=== PATIENT | female | born 1985 | race Two or more races ===

== ENCOUNTER 2017-02-08 13:03 | Emergency (ER) | payer SELFPAY ==
[2017-02-08 13:08] VITALS: TEMP 98; BMI 29.2
--- NOTE | 2017-02-08 13:30 | PDOC ---
History of Present Illness <Virgil Esposito - Last Filed: 02/08/17 17:20> - General History Source: Spouse Exam Limitations: Language Barrier - History of Present Illness Initial Comments: 02/08/17 14:40 The patent is a 29 yo @ 27 wks gestation and no PMH comes into the ED c/o Nasal congestion, Headache, Back pain and productive cough for the past 6 days. Patient is Hebrew speaking and the history was collected by family at bedside. Patient states that she was in her usual state of health until 6 days ago when she began to feel congestion in her nose and sinuses. This congestion is associated with a headache which begins paranasally then radiates along both sides of the head and around to the back of the neck. The headache is worse upon leaning forward. The patient also complains of a cough productive of green sputum which began at the same time as her other symptoms. When she coughs, the patient states that she experiences shortness of breath and chest tightness, but not when she is at rest. Patient denies fevers, chills, sweats, diarrhea, chest pain. Patient recently travelled to the from [facility] 3 weeks ago after a 3 month stay. 02/08/17 14:50 <Franklyn Mahmood - Last Filed: 02/08/17 17:41> - General Chief Complaint: Shortness of Breath Stated Complaint: WEAKNESS (27 WKS )SOB, SINUS PAIN Time Seen by Provider: 02/08/17 13:21 Past History <Virgil Esposito - Last Filed: 02/08/17 17:20> - Travel Traveled outside of the country in the last 30 days: Yes If so, where?: [facility] - Past Medical History Other medical history: denies - Surgical History Appendectomy: Yes Cholecystectomy: Yes - Family Disease History Family Disease History: Diabetes: Grandparents Comment:: 02/08/17 14:58 Breast cancer in aunt - Reproductive History Is Patient Now?: Yes (#): 3 Para: 2 - Suicide/Smoking/Psychosocial Hx Smoking History: Never smoked Information on smoking cessation initiated: No Hx Alcohol Use: No Drug/Substance Use Hx: No Substance Use Type: None <Franklyn Mahmood - Last Filed: 02/08/17 17:41> - Past Medical History Allergies/Adverse Reactions: Allergies Allergy/AdvReac Type Severity Reaction Status Date / Time No Known Allergies Allergy Verified 02/08/17 13:08 Home Medications: Ambulatory Orders Vit/Iron Fumarate/FA [ Tablet] 1 each PO DAILY 02/08/17 Review of Systems - Review of Systems Constitutional: Yes: Malaise, Weakness. No: Chills, Diaphoresis, Fever, Night Sweats HEENTM: Yes: Nose Congestion. No: Ear Pain, Ear Discharge, Nose Bleeding, Throat Pain, Throat Swelling Respiratory: Yes: Cough, Shortness of Breath, Productive cough. No: SOB with Exertion, SOB at Rest, Wheezing, Hemoptysis Cardiac (ROS): Yes: Lightheadedness, Chest Tightness. No: Chest Pain, Edema, Palpitations, Syncope ABD/GI: No: Constipated, Diarrhea : Yes: Frequency. No: Burning, Dysuria, Hematuria Musculoskeletal: Yes: Back Pain, Joint Pain Neurological: Yes: Headache. No: Numbness <Franklyn Mahmood - Last Filed: 02/08/17 17:41> *Physical Exam - Vital Signs Last Vital Signs Temp Pulse Resp BP Pulse Ox 98 F 89 18 114/58 99 02/08/17 13:06 02/08/17 13:06 02/08/17 13:06 02/08/17 13:06 02/08/17 13:06 <Virgil Esposito - Last Filed: 02/08/17 17:20> - Vital Signs Last Vital Signs Temp Pulse Resp BP Pulse Ox 98 F 89 18 114/58 99 02/08/17 13:06 02/08/17 13:06 02/08/17 13:06 02/08/17 13:06 02/08/17 13:06 - Physical Exam General Appearance: Yes: Appropriately Dressed. No: Apparent Distress HEENT: positive: EDITA, Pharynx Normal, Other (mild erythema and cobblestoneing in the posterior pharynx. ). negative: Photophobia, Pharyngeal Erythema, Tonsillar Exudate Neck: positive: Trachea midline, Supple. negative: Rigidity Respiratory/Chest: positive: Lungs Clear, Normal Breath Sounds. negative: Accessory Muscle Use Cardiovascular: positive: Regular Rhythm, Regular Rate, S1, S2. negative: Edema , JVD, Murmur, Gallop/S3, Gallop/S4 Gastrointestinal/Abdominal: positive: Soft, Other ( abdomen). negative : Tender Neurologic: positive: Fully Oriented, Alert, Normal Mood/Affect, Motor Strength 5/5 <Franklyn Mahmood - Last Filed: 02/08/17 17:41> ED Treatment Course - LABORATORY CBC & Chemistry Diagram: 02/08/17 15:15 02/08/17 15:15 - ADDITIONAL ORDERS Additional order review: Laboratory Results 02/08/17 02/08/17 15:15 15:00 Sodium 139 Potassium 3.7 Chloride 102 Carbon Dioxide 24 Anion Gap 13 BUN 6 L Creatinine 0.6 Creat Clearance w eGFR > 60 Random Glucose 79 Calcium 8.5 Total Bilirubin 0.4 AST 18 ALT 26 Alkaline Phosphatase 110 Total Protein 6.8 Albumin 2.6 L Urine Color Straw Urine Appearance Clear Urine pH 8.0 Urine Protein Negative Urine Glucose (UA) Negative Urine Ketones Negative Urine Blood Negative Urine Nitrite Negative Urine Bilirubin Negative Urine Urobilinogen Negative 02/08/17 15:00 Influenza Types A,B Antigen (SRINIVAS) - Final Nasopharyngeal Swab - Final 02/08/17 15:15 RBC 4.37 MCV 87.5 MCHC 33.7 RDW 13.3 MPV 10.1 Neutrophils % 68.7 Lymphocytes % 22.6 Monocytes % 6.5 Eosinophils % 1.9 Basophils % 0.3 - RADIOLOGY Radiology Studies Ordered: Category Date Time Status CHEST PA & LAT [RAD] Stat Radiology 02/08/17 14:39 Completed - Medications Given in the ED: ED Medications Discontinued Medications Generic Name Dose Route Start Last Admin Trade Name Toneq PRN Reason Stop Dose Admin Acetaminophen 1,000 mg 02/08/17 15:07 02/08/17 15:38 Ofirmev Injection - IVPB 02/08/17 15:08 1,000 mg ONCE ONE Administration Sodium Chloride 1,000 mls @ 1,000 mls/hr 02/08/17 15:07 02/08/17 15:38 Normal Saline - IV 02/08/17 16:06 1,000 mls/hr ASDIR STA Administration <Virgil Esposito - Last Filed: 02/08/17 17:20> - LABORATORY CBC & Chemistry Diagram: 02/08/17 15:15 02/08/17 15:15 <Franklyn Mahmood - Last Filed: 02/08/17 17:41> Medical Decision Making - Medical Decision Making 02/08/17 15:04 Patient is a 31 yo @ 27wks gestation comes into the the ED c/o weakness, nasal congestion headache, productive cough, malaise and joint/back pain. No fevers or chills. -ssx likely 2/2 viral vs. Bacterial URI. In F w/ recent travel, Zika virus should be ruled out. -CBC w/ Diff -CMP -Flu swab -Urinalysis -CXR PA and LAT -Zika urine and serum antigens -tylenol 1g IVPB x1 -NS 1L bolus 02/08/17 16:05 -CBC, CMP grossly unremarkable. -UA and CXR pending 02/08/17 17:39 -UA and CXR WNL; Patient can be discharged home with instructions to f/u w/ OB. <Franklyn Mahmood - Last Filed: 02/08/17 17:41> *DC/Admit/Observation/Transfer <Virgil Esposito - Last Filed: 02/08/17 17:20> <Franklyn Mahmood - Last Filed: 02/08/17 17:41> Diagnosis at time of Disposition: Upper respiratory infection Qualifiers: URI type: unspecified viral URI Qualified Code(s): J06.9 - Acute upper respiratory infection, unspecified - Discharge Dispostion Disposition: HOME Condition at time of disposition: Stable - Referrals Referrals: Emilia Lopez MD [Staff Physician] - - Patient Instructions Printed Discharge Instructions: DI for Viral Upper Respiratory Infection -- Adult Additional Instructions: Call the number provided to make an appointment with our Ob clinic. Otherwise, follow up at your scheduled appointment as scheduled this Wednesday. If you experience worsening fevers, headache, neck stiffness, or any other concerning symptoms, return to the ER immediately.
[2017-02-08] MEDS ORDERED: SODIUM CHLORIDE 1,000 ML IV STA (15:07)
[2017-02-08] MEDS ORDERED: ACETAMINOPHEN 1000 MG/100 ML VIAL (NON FORMULARY) IVPB ONE (15:07)
[2017-02-08 15:29] LABS: BASOPHIL 0.3 % (0-2.0); EOSINOPHIL 1.9 % (0-4.5); MCH 29.5 pg (25.7-33.7); MCHC 33.7 g/dl (32.0-36.0); MEAN CELL VOLUME 87.5 fl (80-96); MEAN PLT VOLUME 10.1 fl (7.5-11.1); NEUTROPHILS 68.7 % (42.8-82.8); PLATELET COUNT 193 K/MM3 (134-434); RDW 13.3 % (11.6-15.6); WHITE BLOOD COUNT 10.9 K/mm3 (4.0-10.0)
--- NOTE | 2017-02-08 15:29 | PDOC ---
Attending Attestation - Resident Resident Name: RomainFranklyn alvarado - ED Attending Attestation I have performed the following: I have examined & evaluated the patient, The case was reviewed & discussed with the resident, I agree w/resident's findings & plan, Exceptions are as noted - HPI HPI: 02/08/17 15:19 31 F @ 27 weeks presenting with nasal congestion, cough, and headache x 4 days. Pt states that the nasal congestion has been keeping her up at night. She reports non-productive cough, as well as mild posterior headache. She denies neck stiffness, denies thunderclap, denies worst headache of life. Pt denies abdominal pain/N/V. Denies vaginal discharge or bleeding. Pt DENIES chest pain or SOB. Pt recently immigrated from [facility] 1 month ago. Denies any other recent travel. Has 2 children at home with similar URI-like symptoms. No other sick contacts. - Physicial Exam PE: 02/08/17 15:29 "GENERAL: Awake, alert, and fully oriented, in no acute distress HEAD: No signs of trauma EYES: PERRLA, EOMI, sclera anicteric, conjunctiva clear ENT: Auricles normal inspection, hearing grossly normal, nares patent, OP with cobblestoning no exudates or ulcers. Moist mucosa NECK: Nontender, no stepoffs, Normal ROM, supple, no lymphadenopathy, JVD, or masses LUNGS: Breath sounds equal, clear to auscultation bilaterally. No wheezes, and no crackles HEART: Regular rate and rhythm, normal S1 and S2, no murmurs, rubs or gallops ABDOMEN: Soft, gravid, nontender, normoactive bowel sounds. No guarding, no rebound. No masses EXTREMITIES: Normal range of motion, no edema. No clubbing or cyanosis. No cords, erythema, or tenderness NEUROLOGICAL: Cranial nerves II through XII intact. 5/5 strength and sensation in all extremities, Normal speech, normal gait SKIN: Warm, Dry, normal turgor, no rashes or lesions noted. " - Medical Decision Making 02/08/17 15:30 31 F with cough, congestion, headache x 4 days. Likely viral URI. Pt with no fevers here. Will evaluate for influenza and initiate tamiflu if positive. Will obtain CXR to r/o pna. Pt also from Zika endemic area, so will send Zika PCR testing. - Labs, CXR, flu swab, zika PCR - IVF, tylenol - F/u OB 02/08/17 17:18 CBC,CMP WBC 10.9 K/mm3 (4.0-10.0) H 02/08/17 15:15 RBC 4.37 M/mm3 (3.60-5.2) 02/08/17 15:15 Hgb 12.9 GM/dL (10.7-15.3) 02/08/17 15:15 Hct 38.3 % (32.4-45.2) 02/08/17 15:15 MCV 87.5 fl (80-96) 02/08/17 15:15 MCH 29.5 pg (25.7-33.7) 02/08/17 15:15 MCHC 33.7 g/dl (32.0-36.0) 02/08/17 15:15 RDW 13.3 % (11.6-15.6) 02/08/17 15:15 Plt Count 193 K/MM3 (134-434) 02/08/17 15:15 MPV 10.1 fl (7.5-11.1) 02/08/17 15:15 Neutrophils % 68.7 % (42.8-82.8) 02/08/17 15:15 Lymphocytes % 22.6 % (8-40) 02/08/17 15:15 Monocytes % 6.5 % (3.8-10.2) 02/08/17 15:15 Eosinophils % 1.9 % (0-4.5) 02/08/17 15:15 Basophils % 0.3 % (0-2.0) 02/08/17 15:15 Sodium 139 mmol/L (136-145) 02/08/17 15:15 Potassium 3.7 mmol/L (3.5-5.1) 02/08/17 15:15 Chloride 102 mmol/L (98-107) 02/08/17 15:15 Carbon Dioxide 24 mmol/L (21-32) 02/08/17 15:15 Anion Gap 13 (8-16) 02/08/17 15:15 BUN 6 mg/dL (7-18) L 02/08/17 15:15 Creatinine 0.6 mg/dL (0.55-1.02) 02/08/17 15:15 Creat Clearance w eGFR > 60 (>60) 02/08/17 15:15 Random Glucose 79 mg/dL (74-106) 02/08/17 15:15 Calcium 8.5 mg/dL (8.5-10.1) 02/08/17 15:15 Total Bilirubin 0.4 mg/dL (0.2-1.0) 02/08/17 15:15 AST 18 U/L (15-37) 02/08/17 15:15 ALT 26 U/L (12-78) 02/08/17 15:15 Alkaline Phosphatase 110 U/L (45-117) 02/08/17 15:15 Total Protein 6.8 g/dl (6.4-8.2) 02/08/17 15:15 Albumin 2.6 g/dl (3.4-5.0) L 02/08/17 15:15 CXR unremarkable. Flu swab negative. Zika PCR pending. Pt well appearing, vitals normal. Clinically stable for DC.
[2017-02-08] MEDS ORDERED: ACETAMINOPHEN INJECTION 100 ML IVPB ONE (15:32)
[2017-02-08 15:46] LABS: ALBUMIN 2.6 g/dl (3.4-5.0); ANION GAP 13 (8-16); CALCIUM 8.5 mg/dL (8.5-10.1); CO2 24 mmol/L (21-32); CREATININE 0.6 mg/dL (0.55-1.02); GLUCOSE,RANDOM 79 mg/dL (74-106); SGOT/AST 18 U/L (15-37); SGPT/ALT 26 U/L (12-78)
[2017-02-08 15:48] LABS: ALK PHOS 110 U/L (45-117); BILIRUBIN,TOTAL 0.4 mg/dL (0.2-1.0); TOT PROT 6.8 g/dl (6.4-8.2)
[2017-02-08 15:53] LABS: URINE APPEARANCE CLEAR; URINE BILIRUBIN NEGATIVE (NEGATIVE); URINE BLOOD NEGATIVE (NEGATIVE); URINE COLOR STRAW; URINE GLUCOSE (UA) NEGATIVE (NEGATIVE); URINE KETONE NEGATIVE (NEGATIVE); URINE NITRITE NEGATIVE (NEGATIVE); URINE PROTEIN NEGATIVE (NEGATIVE); URINE UROBILINOGEN NEGATIVE mg/dL (0.2-1.0)
[2017-02-08 18:13] VITALS: BP 101/54; PULSE 77
[2017-02-08 22:33] LABS: URINE LEUK ESTERASE TRACE (NEGATIVE)
[2017-02-12 06:07] LABS: ZIKA VIRUS SER. Negative (Negative); ZIKA VIRUS UR. Negative (Negative)
== END 2017-02-08 18:13 | disposition home or self-care (01) ==
LOC: JER 13:03
PROC: 3E033NZ Introduction of Analgesics, Hypnotics, Sedatives into Peripheral Vein, Percutaneous Approach (ICD-10-PCS; principal; 2017-02-08)
DX: O99.89 Other specified diseases and conditions complicating pregnancy, childbirth and the puerperium (principal); J06.9 Acute upper respiratory infection, unspecified; B97.89 Other viral agents as the cause of diseases classified elsewhere; Z3A.27 27 weeks gestation of pregnancy
CPT/HCPCS: 36415; 71020-TC; 80053; 81003; 81015; 85025; 87804; 99285-25

== ENCOUNTER 2017-03-13 12:33 | Emergency (ER) | payer SELFPAY ==
--- NOTE | 2017-03-13 12:59 | PDOC ---
History of Present Illness - General Chief Complaint: Cold Symptoms Stated Complaint: COUGH - History of Present Illness Initial Comments: 03/13/17 13:12 31-year-old female 32 weeks presents with 2 weeks of cough. She also reports intermittent nausea and 1 episode of vomiting this morning. Reports the cough has been keeping her up at night and is productive of green phlegm. Denies fevers, chills. Has not seen her OB for the symptoms. Has not eaten today. Pt was seen here and [facility] for the cough before. Was put on amox but only took 3 days of it before stopping due to abdominal pain. Pt also reports that she felt the baby move this morning, and not since but on evaluation, pt felt the baby move normally after drinking apple juice. Denies chest pain, shortness of breath, headache, urinary symptoms, lower extremity edema Past History - Past Medical History Allergies/Adverse Reactions: Allergies Allergy/AdvReac Type Severity Reaction Status Date / Time No Known Allergies Allergy Verified 03/13/17 12:37 Home Medications: Ambulatory Orders Vit/Iron Fumarate/FA [ Tablet] 1 each PO DAILY 02/08/17 COPD: No Other medical history: 32 WEEKS - Surgical History Appendectomy: Yes Cholecystectomy: Yes - Family Disease History Family Disease History: Diabetes: Grandparents - Reproductive History (#): 3 Para: 2 - Suicide/Smoking/Psychosocial Hx Smoking History: Never smoked Have you smoked in the past 12 months: No Information on smoking cessation initiated: No Hx Alcohol Use: No Drug/Substance Use Hx: No Substance Use Type: None Review of Systems - Review of Systems Comments:: 03/13/17 13:16 GENERAL/CONSTITUTIONAL: No fever or chills. No weakness. HEAD, EYES, EARS, NOSE AND THROAT: No change in vision. No ear pain or discharge. No sore throat. GASTROINTESTINAL: +nausea, +vomiting, no diarrhea or constipation. GENITOURINARY: No dysuria, frequency, or change in urination. CARDIOVASCULAR: No chest pain or shortness of breath. RESPIRATORY: +cough, no wheezing, or hemoptysis. MUSCULOSKELETAL: No joint or muscle swelling or pain. No neck or back pain. SKIN: No rash NEUROLOGIC: No headache, vertigo, loss of consciousness, or change in strength/ sensation. ENDOCRINE: No increased thirst. No abnormal weight change. HEMATOLOGIC/LYMPHATIC: No anemia, easy bleeding, or history of blood clots. ALLERGIC/IMMUNOLOGIC: No hives or skin allergy. *Physical Exam - Vital Signs Last Vital Signs Temp Pulse Resp BP Pulse Ox 97.7 F 86 20 105/62 97 03/13/17 12:33 03/13/17 12:33 03/13/17 12:33 03/13/17 12:33 03/13/17 12:33 - Physical Exam Comments: 03/13/17 13:20 GENERAL: Awake, alert, and fully oriented, in no acute distress HEAD: No signs of trauma EYES: PERRLA, EOMI, sclera anicteric, conjunctiva clear ENT: Auricles normal inspection, hearing grossly normal, nares patent, oropharynx clear without exudates. Moist mucosa NECK: Normal ROM, supple, no lymphadenopathy, JVD, or masses LUNGS: Breath sounds equal, clear to auscultation bilaterally. No wheezes, and no crackles HEART: Regular rate and rhythm, normal S1 and S2, no murmurs, rubs or gallops ABDOMEN: Soft, nontender, normoactive bowel sounds. No guarding, no rebound. No masses. Gravid uterus ~11cm above umbilicus EXTREMITIES: Normal range of motion, no edema. No clubbing or cyanosis. No cords, erythema, or tenderness NEUROLOGICAL: Normal speech, cranial nerves intact, negative pronator drift, 5/ 5 strength in all 4 extremities, normal sensation to light touch in all 4 extremities, normal cerebellar exam, normal gait, normal reflexes and tone SKIN: Warm, Dry, normal turgor, no rashes or lesions noted. ED Treatment Course - LABORATORY CBC & Chemistry Diagram: 03/13/17 14:22 03/13/17 14:22 Medical Decision Making - Medical Decision Making 03/13/17 13:20 31-year-old female 32 weeks presents with 2 weeks of productive cough. Vitals unremarkable. Lungs are clear. Cough possibly secondary to viral syndrome , will rule out influenza. Will consider CXR given persistence of cough. With regards to transient decreased movement, pt reports only transient and she now feels the baby moving normally. Will obtain ultrasound to evaluate . pt reports she is not concerned as it was only about 1.5hrs she did not feel the baby move. 03/13/17 15:59 Ultrasound within normal limits. Labs unremarkable. CXR neg for infiltrate. UA negative for infection. Flu swab negative. Likely viral syndrome causing persistent cough. Now the patient is 32 weeks she can take Robitussin as a cough suppressant. Advised patient to follow-up with her primary doctor within 1 week for the cough. I discussed the physical exam findings, ancillary test results and final diagnoses with the patient. I answered all of the patient's questions. The patient was satisfied with the care received and felt comfortable with the discharge plan and treatment plan. The patient will call their primary care physician within 24 hours to arrange follow-up and will return to the Emergency Department with any new, persistent or worsening symptoms. 03/13/17 16:04 *DC/Admit/Observation/Transfer Diagnosis at time of Disposition: Upper respiratory infection - Discharge Dispostion Disposition: HOME Condition at time of disposition: Stable Admit: No - Referrals - Patient Instructions Additional Instructions: You may take [id number] Robitussin for cough. Follow-up with your primary doctor within 2-3 days. Stay hydrated and drink plenty of fluids. Return to the emergency department if you have any new, worsening or concerning symptoms. - Post Discharge Activity - Attestations Physician Attestion: 03/13/17 16:01 I, Dr. Roberta Patrick MD, attest that this document has been prepared under my direction and personally reviewed by me in its entirety. I further attest, that it accurately reflects all work, treatment, procedures and medical decision -making performed by me.
[2017-03-13 13:14] VITALS: BP 105/62; PULSE 86; TEMP 97.7; BMI 28.6
[2017-03-13 13:43] LABS: URINE APPEARANCE Clear; URINE BILIRUBIN Negative (NEGATIVE); URINE GLUCOSE (UA) Negative (NEGATIVE); URINE KETONE Negative (NEGATIVE); URINE LEUK ESTERASE Negative (NEGATIVE); URINE NITRITE Negative (NEGATIVE); URINE PROTEIN Negative (NEGATIVE); URINE UROBILINOGEN 0.2 (0.2-1.0)
[2017-03-13 13:49] LABS: URINE BLOOD Trace-intact (NEGATIVE); URINE COLOR AMBER
[2017-03-13 14:00] LABS: URINE RBC 0-3 /hpf (0-3); URINE WBC 0-2 (0-5)
[2017-03-13 14:28] LABS: EOSINOPHIL 0.9 % (0-4.5); MCH 29.5 pg (25.7-33.7); MCHC 33.7 g/dl (32.0-36.0); MEAN CELL VOLUME 87.5 fl (80-96); MEAN PLT VOLUME 9.9 fl (7.5-11.1); NEUTROPHILS 73.7 % (42.8-82.8); PLATELET COUNT 210 K/MM3 (134-434); RDW 12.3 % (11.6-15.6); WHITE BLOOD COUNT 13.1 K/mm3 (4.0-10.8)
[2017-03-13 14:53] LABS: ALBUMIN 2.5 g/dl (3.5-5.0); ALK PHOS 118 U/L (32-92); ANION GAP 7 (8-16); BILIRUBIN,TOTAL 0.3 mg/dl (0.2-1.0); CALCIUM 8.6 mg/dl (8.4-10.2); CO2 23 mmol/L (22-28); CREATININE 0.6 mg/dl (0.6-1.3); GLUCOSE,RANDOM 83 mg/dl (74-106); SGOT/AST 27 U/L (10-42); SGPT/ALT 34 U/L (10-40); TOT PROT 5.8 g/dl (6.4-8.3)
== END 2017-03-13 16:31 | disposition home or self-care (01) ==
LOC: FER 12:33
DX: O26.893 Other specified pregnancy related conditions, third trimester (principal); Z3A.32 32 weeks gestation of pregnancy; J06.9 Acute upper respiratory infection, unspecified
CPT/HCPCS: 36415; 71010-TC; 76801-TC; 80053; 81003; 81015; 85025; 87086; 87804; 99282-25

== ENCOUNTER 2017-05-03 01:00 | Inpatient (IN) | payer OTHER ==
[~2017-05-03 01:00] MED LIST: DEXTROSE 5%-LACTATED RINGERS 1,000 ML IV SCH
[2017-05-03 02:44] LABS: BASO % 0.7 % (0-2.0); EOS % 0.4 % (0-4.5); HEMATOCRIT 41.8 % (32.4-45.2); HEMOGLOBIN 13.5 GM/dL (10.7-15.3); LYMPH % 20.4 % (8-40); MCH 28.5 pg (25.7-33.7); MCHC 32.3 g/dl (32.0-36.0); MEAN PLT VOLUME 10.6 fl (7.5-11.1); NEUT % 71.5 % (42.8-82.8); PLATELET COUNT 207 K/MM3 (134-434); RBC 4.75 M/mm3 (3.60-5.2); RDW 14.1 % (11.6-15.6)
[2017-05-03] MEDS ORDERED: AMPICILLIN - 2 GM in SODIUM CHLORIDE 100 ML IVPB ONE (03:00)
[2017-05-03 03:06] LABS: INR 0.92 (0.82-1.09); PROTHROMBIN TIME (PATIENT) 10.4 SEC (9.98-11.88)
[2017-05-03 03:08] LABS: ACTIVATED PTT 28.6 SECONDS (26.9-34.4)
[2017-05-03] MEDS ORDERED: AMPICILLIN SODIUM 2 GM VIAL ONE (03:09)
[2017-05-03 03:16] LABS: ANION GAP 12 (8-16); BLOOD UREA NITROGEN 8 mg/dL (7-18); CHLORIDE 102 mmol/L (98-107); CO2 24 mmol/L (21-32); CREATININE 0.6 mg/dL (0.55-1.02); GLUCOSE,RANDOM 79 mg/dL (74-106); POTASSIUM 3.8 mmol/L (3.5-5.1); SODIUM 138 mmol/L (136-145)
[2017-05-03 03:39] VITALS: BMI 27.8
[2017-05-03] MEDS ORDERED: BUTORPHANOL TARTRATE 1 MG/ML VIAL ONE (04:16)
[2017-05-03] MEDS ORDERED: PROMETHAZINE HCL 25 MG/1 ML VIAL ONE (04:17)
[2017-05-03] MEDS ORDERED: BUTORPHANOL TARTRATE 1 MG/ML VIAL IVPB ONE (04:30)
[2017-05-03] MEDS ORDERED: PROMETHAZINE HCL 25 MG/1 ML VIAL IVPB ONE (04:30)
[2017-05-03] MEDS ORDERED: OXYTOCIN 20 UNITS in 0.9% NS 20 UNIT/1,000 ML INFUS.BAG IV ONE (04:57)
--- NOTE | 2017-05-03 04:58 | PN ---
Progress Note (short form) - Note Progress Note: cx full 100 vx 0 mi arom, light mec. fhr cat 1, wants to push
--- NOTE | 2017-05-03 05:02 | HP ---
Past Medical History - Primary Care Physician PCP:: Reid Charles - Admission Chief Complaint: pregnnacy 40.4 weeks, labor History of Present Illness: 31 yo f g 3 p2002 c/o contrcation, no rom, no bleeding, fhr cat 1, regular contraction History Source: Patient Limitations to Obtaining History: Language Barrier - Past Medical History ...: 3 ...Para: 2 ...Term: 2 ...LMP: 07/23/16 ... Weeks Gestation by Dates: 40.4 ...EDC by Dates: 04/29/17 - Past Surgical History Hx Myomectomy: No Hx Transabdominal Cerclage: No - Smoking History Smoking history: Never smoked Have you smoked in the past 12 months: No - Alcohol/Substance Use Hx Alcohol Use: No - Social History History of Recent Travel: No Home Medications - Allergies Allergies/Adverse Reactions: Allergies Allergy/AdvReac Type Severity Reaction Status Date / Time No Known Allergies Allergy Verified 03/13/17 12:37 - Home Medications Home Medications: Ambulatory Orders Vit/Iron Fum/Folic AC [ Tablet] 1 each PO DAILY 02/08/17 Review of Systems - Review of Systems Constitutional: reports: No Symptoms Eyes: reports: No Symptoms HENT: reports: No Symptoms Neck: reports: No Symptoms Cardiovascular: reports: No Symptoms Respiratory: reports: No Symptoms Gastrointestinal: reports: No Symptoms Genitourinary: reports: No Symptoms Breasts: reports: No Symptoms Reported Musculoskeletal: reports: No Symptoms Integumentary: reports: No Symptoms Neurological: reports: No Symptoms Endocrine: reports: No Symptoms Hematology/Lymphatic: reports: No Symptoms Psychiatric: reports: No Symptoms Physical Exam - Maternity Vital Signs: Vital Signs Temperature 98.1 F 05/03/17 03:00 Pulse Rate 108 H 05/03/17 04:00 Respiratory Rate 20 05/03/17 04:00 Blood Pressure 119/70 05/03/17 04:00 O2 Sat by Pulse Oximetry (%) Constitutional: Yes: Well Nourished, No Distress, Calm Eyes: Yes: WNL, Conjunctiva Clear, EOM Intact HENT: Yes: WNL, Atraumatic, Normocephalic Neck: Yes: WNL, Supple, Trachea Midline Cardiovascular: Yes: WNL, Regular Rate and Rhythm Breast(s): Yes: WNL - Abdominal Exam/OB Number of Fetuses: Single Presentation: Vertex Contractions: Yes Regularity: Regular Intensity: Mod/Strong Monitor Mode: External Heart Rate Location: [facility] Category: I Accelerations: Uniform Decelerations: None - Vaginal Exam/OB Vaginal Bleediing: No Dilatation (cm): full Effacement (%): 100 Amniotic Membrane Status: Intact Presentation: Vertex/Position Station: 0 - Physical Exam Musculoskeletal: Yes: WNL Extremities: Yes: WNL Edema: LLE: Trace, RLE: Trace Deep Tendon Reflex Grade: Normal +2 ...Motor Strength: WNL Psychiatric: Yes: WNL - Labs Lab Results: CBC, BMP 05/03/17 02:30 05/03/17 02:30 Hemorrhage Risk Assessment - Risk Factors Medium Risk Factors: Yes: None High Risk Factors: Yes: None Risk Score: 1 Risk Level: Medium Risk Problem List - Problems (1) Post term over 40 weeks Code(s): O48.0 - POST-TERM (2) Labor established Code(s): KHS6895 - Assessment/Plan admit for vaginal delivery, FHM pain management
[2017-05-03] MEDS ORDERED: BENZOCAINE 20% 57 GM BOTTLE TP PRN (05:33)
[2017-05-03] MEDS ORDERED: BISACODYL 10 MG SUPP.RECT RC PRN (05:33)
[2017-05-03] MEDS ORDERED: ACETAMINOPHEN 325 MG TABLET (FP) PO PRN (05:33)
[2017-05-03] MEDS ORDERED: BENZOCAINE 28 GM HEMORRHOIDAL OINTMENT TP PRN (05:33)
[2017-05-03] MEDS ORDERED: METHYLERGONOVINE MALEATE 0.2 MG/1 ML AMP IM PRN (05:33)
[2017-05-03] MEDS ORDERED: WITCH HAZEL 50% (TUCKS) 40 PAD/JAR PAD TP PRN (05:33)
[2017-05-03 05:37] LABS: ARTERIAL BLD GAS O2 SATURATION 51.9 % (90-98.9); ARTERIAL BLOOD GAS BASE EXCESS 0.1 meq/l (-2-2); ARTERIAL BLOOD GAS PCO2 52.4 mmHg (35-45); ARTERIAL BLOOD GAS pH 7.32 (7.35-7.45)
[2017-05-03 05:42] LABS: VENOUS PC02 41.4 mmHg (38-52); VENOUS PH 7.39 (7.32-7.42); VENOUS PO2 42.5 mmHg (28-48)
[2017-05-03 05:43] LABS: ARTERIAL BLOOD GAS PO2 25.5 mmHg (80-100)
[2017-05-03] MEDS ORDERED: D5W-LR W/ 20 UNITS OXYTOCIN 20 UNIT/1,000 ML INFUS.BAG IV SCH (05:45)
[2017-05-03 07:21] LABS: COCAINE, UR NEGATIVE ng/ml (CUTOFF=300); METHADONE, UR NEGATIVE ng/ml (CUTOFF=300); OPIATES, URI NEGATIVE ng/ml (CUTOFF=300); PHENCYCLIDINE,URINE NEGATIVE ng/ml (CUTOFF=25); URINE AMPHETAMINES NEGATIVE ng/ml (CUTOFF=500); URINE BARBITURATES NEGATIVE ng/ml (CUTOFF=200); URINE BENZODIAZEPINES NEGATIVE ng/ml (CUTOFF=200)
[2017-05-03] MEDS: AMPICILLIN - 1 GM in SODIUM CHLORIDE 100 ML IVPB SCH ×3 (07:58→17:27)
[2017-05-03] MEDS: IBUPROFEN 600 MG TABLET (FP) PO PRN (08:53)
[2017-05-03] MEDS: PRENATAL VITAMINS W/ FOLIC ACID TABLET (FP) PO SCH ×2 (08:55→09:19)
[2017-05-03] MEDS: FERROUS SO4 325 MG TABLET (FP) PO SCH ×3 (08:55→21:17)
[2017-05-03] MEDS ORDERED: PATIENT'S OWN MEDICATION (NON-FORMULARY) (Prenatal Vit/Iron Fum/Folic Ac [Prenatal Tablet] PO SCH (10:00)
[2017-05-03] MEDS: SENNOSIDES/DOCUSATE COMBO (SENNA PLUS) TABLET (UD) PO PRN (21:17)
[2017-05-04 07:27] LABS: BASO % 0.6 % (0-2.0); EOS % 0.9 % (0-4.5); HEMOGLOBIN 11.5 GM/dL (10.7-15.3); LYMPH % 31.1 % (8-40); MCH 28.6 pg (25.7-33.7); MCHC 32.7 g/dl (32.0-36.0); MEAN CELL VOLUME 87.4 fl (80-96); MEAN PLT VOLUME 10.2 fl (7.5-11.1); NEUT % 62.4 % (42.8-82.8); PLATELET COUNT 185 K/MM3 (134-434); RBC 4.01 M/mm3 (3.60-5.2); RDW 14.1 % (11.6-15.6); WHITE BLOOD COUNT 17.4 K/mm3 (4.0-10.0)
[2017-05-04] MEDS: PRENATAL VITAMINS W/ FOLIC ACID TABLET (FP) PO SCH (09:30)
[2017-05-04] MEDS: FERROUS SO4 325 MG TABLET (FP) PO SCH ×2 (09:30→21:51)
[2017-05-04] MEDS: AMPICILLIN - 1 GM in SODIUM CHLORIDE 100 ML IVPB SCH (09:42)
--- NOTE | 2017-05-04 09:42 | PN ---
Progress Note (short form) - Note Progress Note: ppd 1 doing well, no c/o , voids ok CBC, BMP 05/04/17 07:00 05/03/17 02:30 Last Vital Signs Temp Pulse Resp BP Pulse Ox 97.9 F 65 20 96/50 97 05/04/17 08:33 05/04/17 08:33 05/04/17 08:33 05/04/17 08:33 05/03/17 06:00 abdomen soft, uterus firm, non tender lochia mild no calf tenderness plan ambulate , d/c home in am Problem List - Problems (1) Post term over 40 weeks Code(s): O48.0 - POST-TERM (2) Labor established Code(s): [id number] -
[2017-05-04] MEDS ORDERED: FLU VACC QS2017-18 36MOS UP/PF 60 MCG/0.5 ML SYRINGE IM ONE (10:00)
[2017-05-04] MEDS: IBUPROFEN 600 MG TABLET (FP) PO PRN (14:13)
[2017-05-04] MEDS: SENNOSIDES/DOCUSATE COMBO (SENNA PLUS) TABLET (UD) PO PRN (21:51)
[2017-05-05 00:15] VITALS: BP 112/73
--- NOTE | 2017-05-05 08:27 | PN ---
Post Progress Note - Subjective Subjective: c/o cramps Post Day: 2 Type of Delivery: Vital Signs: Vital Signs Temperature 97.9 F 05/04/17 22:00 Pulse Rate 82 05/04/17 22:00 Respiratory Rate 18 05/04/17 22:00 Blood Pressure 112/73 05/04/17 22:00 O2 Sat by Pulse Oximetry (%) 97 05/03/17 06:00 Breast Exam: Yes: Soft. No: Engorged Uterus: Yes: Fundus Firm, Fundus below umbilicus, Non-tender Lochia: Yes: Rubra Lochia, amount: Moderate Extremities: Yes: Calves non-tender Perineum: Yes: Intact Activity: Ambulating - Labs Labs: CBC WBC 17.4 K/mm3 (4.0-10.0) H 05/04/17 07:00 RBC 4.01 M/mm3 (3.60-5.2) 05/04/17 07:00 Hgb 11.5 GM/dL (10.7-15.3) D 05/04/17 07:00 Hct 35.0 % (32.4-45.2) D 05/04/17 07:00 MCV 87.4 fl (80-96) 05/04/17 07:00 MCH 28.6 pg (25.7-33.7) 05/04/17 07:00 MCHC 32.7 g/dl (32.0-36.0) 05/04/17 07:00 RDW 14.1 % (11.6-15.6) 05/04/17 07:00 Plt Count 185 K/MM3 (134-434) 05/04/17 07:00 MPV 10.2 fl (7.5-11.1) 05/04/17 07:00 Neutrophils % 62.4 % (42.8-82.8) 05/04/17 07:00 Lymphocytes % 31.1 % (8-40) D 05/04/17 07:00 Monocytes % 5.0 % (3.8-10.2) 05/04/17 07:00 Eosinophils % 0.9 % (0-4.5) D 05/04/17 07:00 Basophils % 0.6 % (0-2.0) 05/04/17 07:00 Assessment/Plan stable discharge today
--- NOTE | 2017-05-05 09:00 | DS ---
Physical Exam-[employer] Vital Signs: Vital Signs Temperature 97.9 F 05/04/17 22:00 Pulse Rate 82 05/04/17 22:00 Respiratory Rate 18 05/04/17 22:00 Blood Pressure 112/73 05/04/17 22:00 O2 Sat by Pulse Oximetry (%) 97 05/03/17 06:00 Constitutional: Yes: Well Nourished, No Distress, Calm Eyes: Yes: WNL, Conjunctiva Clear, EOM Intact HENT: Yes: WNL, Atraumatic, Normocephalic Neck: Yes: WNL, Supple, Trachea Midline Cardiovascular: Yes: WNL, Regular Rate and Rhythm Respiratory: Yes: WNL, Regular, CTA Bilaterally Gastrointestinal: Yes: WNL ...Rectal Exam: Yes: WNL Renal/: Yes: WNL ....Post : Yes: Uterus firm, Uterus non-tender, Slight lochia rubra Breast(s): Yes: WNL Musculoskeletal: Yes: WNL Extremities: Yes: WNL Edema: No Integumentary: Yes: WNL Neurological: Yes: WNL, Alert, Oriented ...Motor Strength: WNL Psychiatric: Yes: WNL, Alert, Oriented Labs: CBC, BMP 05/04/17 07:00 05/03/17 02:30 Delivery - Delivery Vaginal Delivery: Spontaneous (no complication) Type of Anesthesia: None Episiotomy/Laceration: None EBL (cc): 300 Delivery, Single - Stages of Labor Date 1st Stage Initiatied: 05/02/17 Time 1st Stage Initiated: 22:00 Date 2nd Stage Initiated: 05/03/17 Time 2nd Stage Initiated: 04:52 Date of Delivery: 05/03/17 Time of Delivery: 05:22 Time Placenta Delivered: 05:25 Placenta: Yes: Spontaneous - 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 - 1 Minute Total Score: 9 5 Minutes Total Score: 9 - Feeding Plan Initial Plan: Elected not to breastfeed exclusively throughout hospitalization Discharge Summary Reason For Visit: LABOR ADMIT Current Active Problems Labor established (Acute) Post term over 40 weeks (Acute) Procedures: Principal: Hospital Course: uneventful Condition: Stable - Instructions Diet, Activity, Other Instructions: Discharge Instructions * Out of Bed * * Regular Diet * Cintia Care * Avoid sex for 6 weeks * RTC 6 weeks call for appt [phone] If you experience excessive bleeding or fever over 101 degrees, call doctor, the clinic or go to the Emergency Room. Referrals: Reid Charles MD [Staff Physician] - - Home Medications Comprehensive Discharge Medication List: Ambulatory Orders Vit/Iron Fum/Folic AC [ Tablet] 1 each PO DAILY 02/08/17 Acetaminophen [Tylenol .Regular Strength -] 650 mg PO Q3H PRN tablet 05/05/17 Ibuprofen [Motrin -] 200 mg PO Q4H PRN tablet 05/05/17 Vitamins (Sjr) - 1 tab PO DAILY tablet 05/05/17
[2017-05-05] MEDS: PRENATAL VITAMINS W/ FOLIC ACID TABLET (FP) PO SCH (09:04)
[2017-05-05] MEDS: FERROUS SO4 325 MG TABLET (FP) PO SCH (09:04)
[2017-05-05] MEDS: IBUPROFEN 600 MG TABLET (FP) PO PRN (09:05)
[2017-05-05 10:40] VITALS: PULSE 73; TEMP 98.1
== END 2017-05-05 13:20 | disposition home or self-care (01) | DRG 560 ==
LOC: JLDR 01:00 → J3W 08:06
PROVIDERS: ADMIT Obstetrics & Gynecology; ATTEND Obstetrics & Gynecology
PROC: 10E0XZZ Delivery of Products of Conception, External Approach (ICD-10-PCS; principal; 2017-05-03)
DX: O48.0 Post-term pregnancy (principal); Z3A.40 40 weeks gestation of pregnancy; Z37.0 Single live birth
CPT/HCPCS: 36415; 36600; 59409; 80048; 80307; 82803; 85025; 85610; 85730; 86593; 86850; 86900; 86901; 87389; 90686

== ENCOUNTER 2021-03-31 22:34 | Emergency (ER) | payer OTHER ==
[2021-03-31 23:24] VITALS: BP 100/61; PULSE 89; TEMP 98.3; BMI 28.3
[2021-04-01] MEDS ORDERED: ACETAMINOPHEN 650 MG/20.3 ML ORAL SOLUTION (CUPS) PO ONE (00:01)
[2021-04-01] MEDS ORDERED: SULFAMETHOXAZOLE/TRIMETHOPRIM 800MG/160MG D.S. TABLET PO ONE (00:02)
[2021-04-01] MEDS ORDERED: ACETAMINOPHEN 650 MG/20.3 ML ORAL SOLUTION (CUPS) ONE (00:21)
[2021-04-01] MEDS ORDERED: SULFAMETHOXAZOLE/TRIMETHOPRIM 800MG/160MG D.S. TABLET ONE (00:21)
== END 2021-04-01 03:00 | disposition home or self-care (01) ==
LOC: JER 22:34
DX: L08.89 Other specified local infections of the skin and subcutaneous tissue (principal)
CPT/HCPCS: 99283-25

== ENCOUNTER 2022-08-17 23:51 | Emergency (ER) | payer OTHER ==
[2022-08-18 00:03] VITALS: BP 112/71; PULSE 65; RESP 20; TEMP 98.2; BMI 29.2
[2022-08-18] MEDS ORDERED: ACETAMINOPHEN 500 MG TABLET (FP) PO ONE (02:06)
[2022-08-18] MEDS ORDERED: DEXAMETHASONE SOD PHOSPHATE 10 MG/1 ML VIAL IM ONE (02:06)
[2022-08-18] MEDS ORDERED: METOCLOPRAMIDE HCL INJECTION 10 MG/2 ML VIAL IVPUSH ONE (02:06)
[2022-08-18] MEDS ORDERED: ACETAMINOPHEN INJECTION 100 ML IVPB ONE (02:28)
[2022-08-18] MEDS ORDERED: METOCLOPRAMIDE HCL INJECTION 10 MG/2 ML VIAL ONE (02:28)
[2022-08-18] MEDS ORDERED: DEXAMETHASONE SOD PHOSPHATE 10 MG/1 ML VIAL ONE (02:28)
[2022-08-18] MEDS ORDERED: ACETAMINOPHEN 1000 MG/100 ML BAG IVPB ONE (02:28)
[2022-08-18 02:59] LABS: BASO % 0.4 % (0-2.0); EOS % 1.2 % (0-4.5); HEMATOCRIT 41.8 % (32.4-45.2); HEMOGLOBIN 13.9 GM/dL (10.7-15.3); MCH 28.4 pg (25.7-33.7); MCHC 33.2 g/dl (32.0-36.0); MEAN CELL VOLUME 85.4 fl (80-96); MEAN PLT VOLUME 9.7 fl (7.5-11.1); MONO % 7.3 % (3.8-10.2); NEUT % 55.1 % (42.8-82.8); PLATELET COUNT 283 10^3/uL (134-434); RBC 4.89 M/mm3 (3.60-5.2); RDW 14.5 % (11.6-15.6); WHITE BLOOD COUNT 11.3 K/mm3 (4.0-10.0)
[2022-08-18 03:17] LABS: POTASSIUM 3.5 mmol/L (3.5-5.1)
[2022-08-18 03:19] LABS: ALBUMIN 3.5 g/dl (3.4-5.0); CALCIUM 9.2 mg/dL (8.5-10.1)
[2022-08-18 03:23] LABS: CREATININE 0.7 mg/dL (0.55-1.3)
[2022-08-18 03:25] LABS: BILIRUBIN,TOTAL 0.4 mg/dL (0.2-1); TOT PROT 7.5 g/dl (6.4-8.2)
[2022-08-18 03:42] LABS: BLOOD UREA NITROGEN 11.3 mg/dL (7-18)
== END 2022-08-18 05:04 | disposition home or self-care (01) ==
LOC: JER 23:51
PROC: 3E033NZ Introduction of Analgesics, Hypnotics, Sedatives into Peripheral Vein, Percutaneous Approach (ICD-10-PCS; principal; 2022-08-18)
PROC: 3E033GC Introduction of Other Therapeutic Substance into Peripheral Vein, Percutaneous Approach (ICD-10-PCS; 2022-08-18)
PROC: 3E023GC Introduction of Other Therapeutic Substance into Muscle, Percutaneous Approach (ICD-10-PCS; 2022-08-18)
DX: R51.9 Headache, unspecified (principal); R22.0 Localized swelling, mass and lump, head; Z20.822 Contact with and (suspected) exposure to COVID-19
CPT/HCPCS: 0241U-QW; 36415; 70450-TC; 70486-TC; 80053; 83735; 84703; 85025; 99284-25; J1100

== ENCOUNTER 2022-10-01 22:55 | Emergency (ER) | payer OTHER ==
[2022-10-01 22:59] VITALS: BP 102/64; PULSE 76; RESP 18; TEMP 98.3; BMI 31.4
[2022-10-02] MEDS ORDERED: ACETAMINOPHEN 500 MG TABLET (FP) PO ONE (00:17)
[2022-10-02] MEDS ORDERED: ACETAMINOPHEN 500 MG TABLET (FP) ONE (00:30)
[2022-10-02] MEDS ORDERED: KETOROLAC TROMETHAMINE 30 MG/1 ML VIAL IM ONE (01:22)
[2022-10-02] MEDS ORDERED: KETOROLAC TROMETHAMINE 30 MG/1 ML VIAL ONE (01:26)
== END 2022-10-02 02:19 | disposition home or self-care (01) ==
LOC: JER 22:55
PROC: 3E0233Z Introduction of Anti-inflammatory into Muscle, Percutaneous Approach (ICD-10-PCS; principal; 2022-10-01)
DX: H92.02 Otalgia, left ear (principal); R51.9 Headache, unspecified
CPT/HCPCS: 84703; 99284-25

== ENCOUNTER 2022-10-26 00:42 | Emergency (ER) | payer OTHER ==
[2022-10-26 00:48] VITALS: BP 104/71; PULSE 100; RESP 18; TEMP 99.9; BMI 31.4
[2022-10-26] MEDS ORDERED: IBUPROFEN 600 MG TABLET (FP) PO ONE ×2 (01:50→02:50)
== END 2022-10-26 03:52 | disposition home or self-care (01) ==
LOC: JER 00:42
DX: R07.0 Pain in throat (principal); R42 Dizziness and giddiness; R11.2 Nausea with vomiting, unspecified; J02.9 Acute pharyngitis, unspecified; Z20.822 Contact with and (suspected) exposure to COVID-19
CPT/HCPCS: 0241U-QW; 87651; 99283-25